=== PATIENT | female | born 1990 | race Asian ===

== ENCOUNTER 2020-07-30 20:40 | Emergency (ER) | payer OTHER ==
[~2020-07-30] VITALS: Ht 167.6 cm; Wt 117.9 kg
--- NOTE | 2020-07-30 21:05 | NUR ---
PT COMES INTO ED TONIGHT DUE TO A HEAD INJURY LAST SUNDAY AT HER WORK WHERE A METAL POLE COME DOWN ON THE TOP OF HER HEAD. AT THE TIME OF THE INJURY PT REPORTS PAIN BUT DENIES LOC, DIZZINESS, N/V. ON SUNDAY AM PT WOKE UP AND REALIZED SHE HAD A LOSS OF CONTINENCE WHILE SLEEPING. PT LOST URINATION CONTROL BUT NOT BOWEL. PT REPORTS ONLY THAT ONE INCIDENT AND NO REPEATED OCCURENCES. LOW GRADE HEADACHE SINCE INCIDENT, 4-5/10 PAIN SCALE, MANAGING WITH IBUPROFEN AT HOME. NO VISION CHANGES, DENIES MEMORY LOSS, GROSS NEURO INTACT. CHANGED INTO GOWN, BED IN LOWEST. RAILS ENGAGED, CALL LIGHT LAP, [facility].
[2020-07-30 21:24] VITALS: BP 136/85
[2020-07-30] MEDS ORDERED: ONDANSETRON ODT 4 MG ONE (21:43)
[2020-07-30] MEDS ORDERED: IBUPROFEN 800 MG TABLET ONE (21:43)
[2020-07-30] MEDS ORDERED: DIPHENHYDRAMINE 25 MG CAPSULE ONE (21:43)
[2020-07-30] MEDS ORDERED: IBUPROFEN 800 MG TABLET PO ONE (22:00)
[2020-07-30] MEDS ORDERED: DIPHENHYDRAMINE 25 MG CAPSULE PO ONE (22:00)
[2020-07-30] MEDS ORDERED: ONDANSETRON ODT 4 MG PO ONE (22:00)
--- NOTE | 2020-07-30 22:27 | NUR ---
Patient/Caregiver given discharge instructions and they have confirmed that they understand the instructions. Patient ambulatory with steady gait. NAD, all questions answered appropriately, denies additional needs at this time. No personal belongings left in room after discharge.
== END 2020-07-30 22:33 | disposition home or self-care (01) ==
LOC: ED 22:30
DX: S06.0X0A Concussion without loss of consciousness, initial encounter (principal); X58.XXXA Exposure to other specified factors, initial encounter; Y93.89 Activity, other specified; Y92.69 Other specified industrial and construction area as the place of occurrence of the external cause; Y99.0 Civilian activity done for income or pay
CPT/HCPCS: 99284; Q0162; Q0163